=== PATIENT | male | born 1995 ===

== ENCOUNTER 2017-11-24 11:07 | Emergency (ER) | payer OTHER ==
[2017-11-24 11:18] VITALS: TEMP 98
[2017-11-24 11:37] VITALS: O2SAT 100
[2017-11-24] MEDS ORDERED: diaZEpam 10 mg/2 ml Inj IVP STA (12:29)
--- NOTE | 2017-11-24 13:08 | RAD ---
Date of service: 11/24/2017 PROCEDURE: Radiographs of the Left Shoulder HISTORY: shoulder injury COMPARISON: No prior. FINDINGS: BONES: No acute fracture identified. JOINTS: Anterior inferior dislocation left humeral head relative to the glenoid. SOFT TISSUES: Normal. OTHER FINDINGS: None. IMPRESSION: Anterior inferior dislocation left shoulder. No visible fracture.
--- NOTE | 2017-11-24 14:44 | ED PDOC ---
HPI: Trauma/Fall - HPI Time Seen by Provider: 11/24/17 11:10 Chief Complaint (Nursing): Trauma History/Exam Limitations: language barrier Additional Complaint(s): see PA note pt + left shoulder pain, injury occurred at work Past Medical History Reviewed: Historical Data, Nursing Documentation, Vital Signs Vital Signs: Last Vital Signs Temp 98 F 11/24/17 11:18 Pulse 70 11/24/17 11:36 Resp 18 11/24/17 11:36 BP 116/71 11/24/17 11:36 Pulse Ox 100 11/24/17 11:36 - Surgical History Surgical History: No Surg Hx - Family History Family History: States: Unknown Family Hx - Immunization History Hx Tetanus Toxoid Vaccination: No Hx Influenza Vaccination: No Hx Pneumococcal Vaccination: No - Home Medications Home Medications: Ambulatory Orders Medication Instructions Recorded Ibuprofen [Motrin Tab] 800 mg PO Q6H PRN #20 tab 11/24/17 - Allergies Allergies/Adverse Reactions: Allergies Allergy/AdvReac Type Severity Reaction Status Date / Time No Known Allergies Allergy Verified 11/24/17 11:13 Review of Systems ROS Statement: Except As Marked, All Systems Reviewed And Found Negative Physical Exam - Reviewed Nursing Documentation Reviewed: Yes Vital Signs Reviewed: Yes - Physical Exam Appears: Positive for: Well, Uncomfortable, In Acute Distress Head Exam: Positive for: ATRAUMATIC, NORMAL INSPECTION, NORMOCEPHALIC Skin: Positive for: Normal Color Eye Exam: Positive for: Normal appearance, EOMI, PERRL ENT: Positive for: Normal ENT Inspection Neck: Positive for: Normal, Painless ROM, Supple, Trachea Midline Cardiovascular/Chest: Positive for: Regular Rate, Rhythm Respiratory: Positive for: Normal Breath Sounds Gastrointestinal/Abdominal: Positive for: Normal Exam, Bowel Sounds, Soft Back: Positive for: Normal Inspection. 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 JOINTS: Anterior inferior dislocation left humeral head relative to the glenoid. SOFT TISSUES: Normal. OTHER FINDINGS: None. IMPRESSION: Anterior inferior dislocation left shoulder. No visible fracture. Time: 14:00 Post reduction x-ray shows normal placement of shoulder. Do not see any signs of acute fracture. Re-evaluation Time: 16:00 Condition: Re-examined, Improved Procedures - Joint Reduction Joint Reduction Site: shoulder (L) (Attempted at 13:25 ended at 13:36) Reduction Attempts: 2 (PA attempted localized maneouvers without success. Placed patient in flexed position with both hands locked into the injured site. Within 10 minutes patient was able to self-reduce left shoulder without any manouvers provided.) Post Joint Reduction Film: joint reduced Progress: Time: 13:40 Patient tolerated exam and procedure with ease Neurovascualr intact bilaterally pre and post reduction Shoulder reduction film ordered Patient will receive sling. Disposition - Clinical Impression Clinical Impression: Dislocation of left shoulder joint - Patient ED Disposition Is Patient to be Admitted: No Counseled Patient/Family Regarding: Studies Performed, Diagnosis, Need For Followup - Disposition Referrals: Jazmine Yadav MD [Staff Provider] - Disposition: Routine/Home Disposition Time: 16:00 Condition: STABLE Prescriptions: Ibuprofen [Motrin Tab] 800 mg PO Q6H PRN #20 tab PRN Reason: Pain Instructions: Shoulder Dislocation Forms: [employer] (Kittitian), [facility] ED School/Work Excuse Print Language: SURINAMESE
--- NOTE | 2017-11-24 15:00 | RAD ---
Date of service: 11/24/2017 PROCEDURE: Radiographs of the Left Shoulder HISTORY: left shoulde reduction film COMPARISON: November 24, 2017. Pre reduction radiographs FINDINGS: BONES: Normal. No fracture. JOINTS: Normal. Glenohumeral and acromioclavicular joints preserved. No osteoarthritis. SOFT TISSUES: Normal. OTHER FINDINGS: None. IMPRESSION: Anatomic alignment return to the left shoulder. No fractures identified.
--- NOTE | 2017-11-24 16:18 | ED PDOC ---
HPI: General Adult Time Seen by Provider: 11/24/17 11:10 Chief Complaint (Nursing): Trauma Chief Complaint (Provider): Left shoulder pain History Per: Patient History/Exam Limitations: no limitations Onset/Duration Of Symptoms: Mins Have you had recent travel within the past 21 days to any of the following countries: [place], [place], [place] or [place]?: No Current Symptoms Are (Timing): Still Present Additional Complaint(s): 22 yo male with no medical problems presents with left shoulder pain after slip and fall at work. Pt states he tried to catch himself. Localized pain right shoulder. 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 No numbness.tingling. Past Medical History Reviewed: Historical Data, Nursing Documentation, Vital Signs Vital Signs: Last Vital Signs Temp 98 F 11/24/17 11:18 Pulse 70 11/24/17 11:36 Resp 18 11/24/17 11:36 BP 116/71 11/24/17 11:36 Pulse Ox 100 11/24/17 14:50 - Medical History PMH: No Chronic Diseases - Surgical History Surgical History: No Surg Hx - Family History Family History: States: No Known Family Hx - Immunization History Hx Tetanus Toxoid Vaccination: No Hx Influenza Vaccination: No Hx Pneumococcal Vaccination: No - Home Medications Home Medications: Ambulatory Orders Medication Instructions Recorded Ibuprofen [Motrin Tab] 800 mg PO Q6H PRN #20 tab 11/24/17 - Allergies Allergies/Adverse Reactions: Allergies Allergy/AdvReac Type Severity Reaction Status Date / Time No Known Allergies Allergy Verified 11/24/17 11:13 Review of Systems ROS Statement: Except As Marked, All Systems Reviewed And Found Negative Constitutional: Negative for: Fever, Chills Musculoskeletal: Positive for: Other (Left shoulder pain) Physical Exam - Reviewed Nursing Documentation Reviewed: Yes Vital Signs Reviewed: Yes - Physical Exam Appears: Positive for: Well, Non-toxic, No Acute Distress Head Exam: Positive for: ATRAUMATIC, NORMAL INSPECTION, NORMOCEPHALIC Skin: Positive for: Normal Color, Warm, DRY Eye Exam: Positive for: Normal appearance ENT: Positive for: Normal ENT Inspection Neck: Positive for: Normal Respiratory: Negative for: Accessory Muscle Use, Respiratory Distress Pulses-Radial (L): 2+ Pulses-Radial (R): 2+ Back: Positive for: Normal Inspection Extremity: Positive for: Tenderness, Deformity (consistant with dislocation). Negative for: Normal ROM (Unable to move the left shoulder ) Neurologic/Psych: Positive for: Alert, Oriented - ECG O2 Sat by Pulse Oximetry: 100 Medical Decision Making Medical Decision Making: Toradol and morphine for pain. XR shows dislocation without fracture. PT seen and examined by Dr. Lugo. additional dilaudid and ativan ordered as per Dr. Lugo. Pt on monitor. Reduction by Dr. Lugo. Repeat XR normal. Pt placed in splint. Discussed ice and motrin for pain. Disposition - Clinical Impression Clinical Impression: Dislocation of left shoulder joint - Patient ED Disposition Is Patient to be Admitted: No Counseled Patient/Family Regarding: Diagnosis, Need For Followup, Rx Given - Disposition Referrals: Jazmine Yadav MD [Staff Provider] - Disposition: Routine/Home Disposition Time: 16:19 Condition: STABLE Prescriptions: Ibuprofen [Motrin Tab] 800 mg PO Q6H PRN #20 tab PRN Reason: Pain Instructions: Shoulder Dislocation Forms: [employer] (Maori), [facility] ED School/Work Excuse Print Language: THAI
[2017-11-24 17:20] VITALS: BP 126/70; PULSE 76; RESP 18
== END 2017-11-24 16:40 | disposition home or self-care (01) ==
LOC: H.ER 11:07
DX: S43.005A Unspecified dislocation of left shoulder joint, initial encounter (principal); W01.0XXA Fall on same level from slipping, tripping and stumbling without subsequent striking against object, initial encounter; Y99.0 Civilian activity done for income or pay
CPT/HCPCS: 23655; 73020; 73030; 96374; 96375; 99285; J1170; J1885; J2060; J2270